=== PATIENT | male | born 1965 | race Caucasian/White ===

== ENCOUNTER → 2017-01-21 | Outpatient (CLI) | payer OTHER ==
[~2017-01-21] MED LIST: ASA CHILDREN'S81 MG PO; DELTASONE DPS10 MG PO; DULERA 200/58.8 GM IH; DUONEB DPS3 ML IH; LASIX DPS40 MG PO; MAALOX DPS30 ML PO; MUCINEX1200 MG PO; SPORANOX100 MG PO; SURFAK DPS240 MG PO; TYLENOL DPS325 MG PO; WELLBUTRIN75 MG PO
== END | disposition home or self-care (01) ==
LOC: PTH.S 11:35
DX: J45.909 Unspecified asthma, uncomplicated (principal); R76.8 Other specified abnormal immunological findings in serum